=== PATIENT | female | born 1960 | race Two or more races ===

== ENCOUNTER 2025-02-16 22:28 | Emergency (ER) | payer MEDICAID, OTHER ==
[~2025-02-16] VITALS: Ht 160 cm; Wt 77.8 kg
--- NOTE | 2025-02-16 22:57 | ED.PDOC ---
History of Present Illness HPI Comments 64 y/o obese F presents with c/c of generalized rash with hives for 2x weeks. Denies any shortness of breath, throat swelling, among others. Chief Complaint: Rash Time Seen by MD: 22:40 Reviewed Notes: Nurses Notes, Medications, Allergies Allergies: Coded Allergies: NO KNOWN ALLERGIES (Unverified , 02/16/25) Information Source: Patient Mode of Arrival: Ambulatory Severity: Moderate Timing: Weeks Duration: Since onset Prehospital treatment: None Past Medical History PAST MEDICAL HISTORY: DM, HTN Surgical History: Denies all surgeries SUPPORT MERCHANDISER History: No Pertinent SUPPORT MERCHANDISER History All Other Systems: Reviewed and Negative (As per HPI) Physical Exam General Appearance: No Apparent Distress, Obese HEENT: Normal ENT Inspection, Pharynx Normal, TMs Normal Neck: Full Range of Motion, Non-Tender, Normal, Normal Inspection Respiratory: Chest Non-Tender, Lungs Clear, No Accessory Muscle Use, No Respiratory Distress, Normal Breath Sounds Cardiovascular: No Edema, No JVD, No Murmur, No Gallop, Normal Peripheral Pulses, Regular Rate/Rhythm Breast Exam: Deferred Gastrointestinal: No Organomegaly, Non Tender, No Pulsatile Mass, Normal Bowel Sounds, Soft Genitalia: Deferred Pelvic: Deferred Rectal: Deferred Extremities: No calf tenderness, Normal capillary refill, Normal inspection, Normal range of motion, Non-tender, No pedal edema Musculoskeletal : Apperance: Normal Neurologic: Alert, line manager II-XII nml as Tested, No Motor Deficits, Normal Affect, Normal Mood, No Sensory Deficits Cerebellar Function: Normal Reflexes: Normal Skin: Dry, Normal Color, Warm Lymphatic: No Adenopathy Was a procedure done? Was a procedure done?: No Differential Dx Considerations may include: angioedema, urticaria, exposure to unknown allergen, contact dermatitis, cellulitis, among others X-Ray, Labs, Meds, VS Vital Signs Date Time Temp Pulse Resp B/P (MAP) Pulse Ox O2 Delivery O2 Flow Rate FiO2 02/17/25 01:15 95 18 100 Room Air* 0 21 21 02/17/25 01:14 94 18 161/96 (117) 99 02/16/25 22:35 97.8 98 18 151/84 98 97.8 Current Medications Medications (Trade) Dose Ordered Sig/Suhas Route Start Time Stop Time Status Last Admin Dexamethasone Sodium Phosphate (Decadron Injection) 10 mg ONCE ONCE IM 02/17/25 00:00 02/17/25 00:01 DC 02/17/25 01:06 Famotidine (Pepcid Tablet) 40 mg ONCE ONCE PO 02/17/25 00:00 02/17/25 00:01 DC 02/17/25 01:05 Time of 1ST Reevaluation: 22:40 Reevaluation 1ST: Unchanged Time of 2ND Reevaluation: 01:45 Reevaluation 2ND: Improved Patient Education/Counseling: Diagnosis, Treatment, Need For Follow Up Family Education/Counseling: No Family Present SEPSIS Sepsis Screen Date sepsis recognized/suspect: Feb 16, 2025 Time Sepsis recognized/suspect: 2236 Recent Procedure: No On Antibiotic Therapy: No Respiratory Rate >20: No Heart Rate >90: No Temp<36 C (96.8 F) or >38.3 C: No SBP <90 or MAP <65 mmHG: No New Acute Mental Status Change: No Is the patient on CPAP, BIPAP,: No Vital Signs Date Time Temp Pulse Resp B/P (MAP) Pulse Ox O2 Delivery O2 Flow Rate FiO2 02/17/25 01:15 95 18 100 Room Air* 0 21 21 02/17/25 01:14 94 18 161/96 (117) 99 02/16/25 22:35 97.8 98 18 151/84 98 97.8 Medications Medications Dose Ordered Sig/Suhas Route Start Time Stop Time Status Last Admin Dose Admin Dexamethasone Sodium Phosphate 10 mg ONCE ONCE IM 02/17/25 00:00 02/17/25 00:01 DC 02/17/25 01:06 Famotidine 40 mg ONCE ONCE PO 02/17/25 00:00 02/17/25 00:01 DC 02/17/25 01:05 Departure 1 Departure Time of Disposition: 01:46 Impression: Primary Impression: Allergic reaction Qualified Codes: T78.40XA - Allergy, unspecified, initial encounter Disposition: 01 HOME / SELF CARE / HOMELESS Condition: Stable Discharged With: Self Critical Care Note Critical Care Time?: No Stability Stability form required: No Heart Score Heart Score: Heart Score Response (Comments) Value History N/A 0 EKG N/A 0 Age N/A 0 Risk Factors N/A 0 Troponin N/A 0 Total 0 I personally scribed for ER ([email or web address]) on 02/16/25 at 22:57. Electronically submitted by Kan Sandy ([email or web address]). ER Feb 16, 2025 22:57 CINTHIA [employer] Feb 17, 2025 01:46
[2025-02-17] MEDS: FAMOTIDINE 20 MG TAB PO ONE (01:05)
[2025-02-17 01:15] VITALS: PULSE 95; RESP 18; O2SAT 100
[2025-02-17] MEDS: diphenhydrAMINE HCL 50 MG/1 ML VL IM ONE (02:42)
[2025-02-17 03:33] VITALS: BP 155/89; PULSE 89; RESP 20; TEMP 98; O2SAT 100
== END 2025-02-17 03:41 | disposition home or self-care (01) ==
LOC: ER 22:28
DX: L50.9 Urticaria, unspecified (principal); T78.40XA Allergy, unspecified, initial encounter; E11.9 Type 2 diabetes mellitus without complications; I10 Essential (primary) hypertension; Z79.899 Other long term (current) drug therapy; X58.XXXA Exposure to other specified factors, initial encounter
CPT/HCPCS: 96372; 99284; J1100; J1200

== ENCOUNTER 2025-04-12 12:03 | Emergency (ER) | payer MEDICAID ==
[~2025-04-12] VITALS: Ht 160 cm; Wt 77.2 kg
[2025-04-12 12:46] VITALS: BP 137/83; PULSE 100; RESP 17; TEMP 98.8; O2SAT 99
--- NOTE | 2025-04-12 15:01 | ED.PDOC ---
HPI Allergic reaction HPI Comments 64 y/o F, with PMHx of DM and HTN presents to the ED for CC of allergic reaction. Patient states, she has developed generalized "welts" following exposure to an unknown irritant. Patient reports, she was seen at another facility when symptoms arouse and was treated however, symptoms have not yet resolved. Patient denies pruritus, shortness of breath, or open skin breaks. No other symptoms or modifying factors are present at this time. Chief Complaint: Allergic Reaction Time Seen by MD: 14:50 Reviewed Notes: Nurses Notes, Medications, Allergies Allergies: Coded Allergies: NO KNOWN ALLERGIES (Unverified , 02/16/25) Information Source: Patient Mode of Arrival: Ambulatory Severity: Moderate Rash: Moderate SOB: None Difficulty swallowing: None Pruritus: None Timing: Days Duration: Since onset Prehospital treatment: Other Developed: Rash Modyifying Factors: None Associated Sign and Symptoms: None Past Medical History PAST MEDICAL HISTORY: DM, HTN Surgical History: Denies all surgeries TRANSPORT NURSE History: No Pertinent TRANSPORT NURSE History Family History Family History: Unknown Social History Smoker: Non-Smoker Alcohol: Denies ETOH Use Drugs: Denies Drug Use Lives In: Home Constitutional: denies: chills, diaphoresis, fatigue, fever, malaise, sweats, weakness, others EENTM: denies: blurred vision, double vision, ear bleeding, ear discharge, ear drainage, ear pain, ear ringing, eye pain, eye redness, hearing loss, mouth pain, mouth swelling, nasal discharge, nose bleeding, nose congestion, nose pain, photophobia, tearing, throat pain, throat swelling, voice changes, others Respiratory: denies: cough, hemoptysis, orthopnea, SOB at rest, shortness of breath, SOB with excertion, stridor, wheezing, others Cardiovascular: denies: chest pain, dizzy spells, diaphoresis, Dyspnea on exertion, edema, irregular heart beat, left arm pain, lightheadedness, palpitations, PND, syncope, others Gastrointestinal: denies: abdomen distended, abdominal pain, blood streaked bowels, constipated, diarrhea, dysphagia, difficulty swallowing, hematemesis, melena, nausea, poor appetite, poor fluid intake, rectal bleeding, rectal pain, vomiting, others Genitourinary: denies: abnormal vagina bleeding, burning, dyspareunia, dysuria, flank pain, frequency, hematuria, incontinence, pain, , vagina discharge, urgency, others Neurological: denies: dizziness, fainting, headache, left sided numbness, left sided weakness, numbness, paresthesia, pre-existing deficit, right sided numbness, right sided weakness, seizure, speech problems, tingling, tremors, weakness, others Musculoskeletal: denies: back pain, gout, joint pain, joint swelling, muscle pain, muscle stiffness, neck pain, others Integumetry: reports: rash; denies: bruises, change in color, change in hair/nails, dryness, laceration, lesions, lumps, wounds, others Allergic/Immunocompromised: denies: Difficulty Healing, Frequent Infections, Hives, Itching, others Hematologic/Lymphatic: denies: anemia, blood clots, easy bleeding, easy bruising, swollen glands, others Endocrine: denies: excessive hunger, excessive sweating, excessive thirst, excessive urination, flushing, intolerance to cold, intolerance to heat, unexplained weight gain, unexplained weight loss, others Psychiatric: denies: anxiety, bipolar disorder, depression, hopeless, panic disorder, schizophrenia, sleepless, suicidal, others All Other Systems: Reviewed and Negative Physical Exam General Appearance: Moderate Distress, Obese HEENT: Normal ENT Inspection, PERRL/EOMI, Other (Coughing) Neck: Full Range of Motion, Non-Tender, Normal, Normal Inspection Respiratory: Chest Non-Tender, Lungs Clear, No Accessory Muscle Use, No Respiratory Distress, Normal Breath Sounds Cardiovascular: No Edema, No JVD, No Murmur, No Gallop, Normal Peripheral Pulses, Regular Rate/Rhythm Breast Exam: Deferred Gastrointestinal: No Organomegaly, Non Tender, No Pulsatile Mass, Normal Bowel Sounds, Soft Genitalia: Deferred Pelvic: Deferred Rectal: Deferred Extremities: No calf tenderness, Normal capillary refill, Normal inspection, Normal range of motion, Non-tender, No pedal edema Neurologic: Alert, home care associate II-XII nml as Tested, No Motor Deficits, Normal Affect, Normal Mood, No Sensory Deficits Cerebellar Function: Normal Reflexes: Normal Skin: Dry, Normal Color, Rash, Warm, Other (Urticaria) Peripheral Pulses: 1+ carotid (R), 1+ carotid (L) Lymphatic: No Adenopathy Was a procedure done? Was a procedure done?: No Differential diagnosis (all) Differential Diagnosis: Contact Dermatitis, Drug Reaction, Urticaria X-Ray, Labs, Meds, VS Vital Signs Date Time Temp Pulse Resp B/P (MAP) Pulse Ox O2 Delivery O2 Flow Rate FiO2 04/12/25 12:46 98.8 100 17 137/83 (101) 99 98.8 04/12/25 12:07 98.5 104 20 133/96 100 98.5 04/12/25 12:07 20 100 Room Air* 0 21 X-Ray, Labs, Meds, VS Comment Course in the [facility] eventful Patient coming with a clamp conjunction and also a rash she has a history of hypertension high cholesterol and diabetes Patient we will be discharged room with the medication after given in his shot of Decadron Time of 1ST Reevaluation: 15:20 Reevaluation 1ST: Unchanged Time of 2ND Reevaluation: 15:26 Reevaluation 2ND: Improved Consultation: PCP Patient Education/Counseling: Diagnosis, Treatment, Prognosis, Need For Follow Up Family Education/Counseling: Diagnosis, Treatment, Prognosis, Need For Follow Up, Other ( at bedside) SEPSIS Sepsis Screen Date sepsis recognized/suspect: Apr 12, 2025 Time Sepsis recognized/suspect: 1213 Recent Procedure: No On Antibiotic Therapy: No Respiratory Rate >20: No Heart Rate >90: No Temp<36 C (96.8 F) or >38.3 C: No SBP <90 or MAP <65 mmHG: No New Acute Mental Status Change: No Is the patient on CPAP, BIPAP,: No Vital Signs Date Time Temp Pulse Resp B/P (MAP) Pulse Ox O2 Delivery O2 Flow Rate FiO2 04/12/25 12:46 98.8 100 17 137/83 (101) 99 98.8 04/12/25 12:07 98.5 104 20 133/96 100 98.5 04/12/25 12:07 20 100 Room Air* 0 21 Departure 1 Departure Time of Disposition: 15: Impression: Primary Impression: URI with cough and congestion Additional Impression: Urticaria Disposition: HOME / SELF CARE / HOMELESS Condition: Fair Additional Instructions: Push fluids and follow up reviewed PCP e-Prescriptions Prednisone (Prednisone) 20 Mg Tab 20 MG PO BID for 5 Days, #10 MG Prov: SINDI ARCHIBALD MD 04/12/25 Azithromycin (Zithromax) 500 Mg Tab 500 MG PO DAILY for 5 Days, #5 TAB Prov: SINDI ARCHIBALD MD 04/12/25 Promethazine HCl (Promethazine Hydrochlorid) 6.25 Mg/5 Ml Ora 12.5 MG PO TID for 10 Days, #300 ML Prov: SINDI ARCHIBALD MD 04/12/25 Epinephrine (Anaphylaxis) (Auvi-Q) 0.1 Mg/0.1 Ml Inj 0.1 MG IJ O PRN for 1 Day, #1 INJ Prov: SINDI ARCHIBALD MD 04/12/25 Discharged With: Self, Spouse Critical Care Note Critical Care Time?: No Stability Stability form required: No Heart Score Heart Score: Heart Score Response (Comments) Value History N/A 0 EKG N/A 0 Age >65 2 Risk Factors 1 or 2 risk factors 1 Troponin N/A 0 Total 3 I personally scribed for SINDI ARCHIBALD MD ([email or web address]) on 04/12/25 at 15:01. Electronically submitted by Chely Osman ([email or web address]). SINDI ARCHIBALD MD Apr 12, 2025 15:01
[2025-04-12] MEDS ORDERED: PRED20TA2 PO (15:32)
[2025-04-12] MEDS ORDERED: AZIT500T PO (15:32)
[2025-04-12] MEDS ORDERED: EPIN0.1I11 IJ (15:32)
[2025-04-12] MEDS ORDERED: PROM5SOL PO (15:32)
== END 2025-04-12 16:05 | disposition home or self-care (01) ==
LOC: ER 12:03
DX: J06.9 Acute upper respiratory infection, unspecified (principal); L50.9 Urticaria, unspecified; E11.9 Type 2 diabetes mellitus without complications; I10 Essential (primary) hypertension
CPT/HCPCS: 96372; J1100